=== PATIENT | female | born 1985 | race Caucasian/White ===

== ENCOUNTER → 2024-05-23 | Outpatient (CLI) | payer OTHER ==
--- NOTE | 2024-05-23 09:32 | US ---
EXAMINATION TYPE: US venous doppler duplex LE BI DATE OF EXAM: 05/23/2024 9:22 AM COMPARISON: NONE CLINICAL INDICATION: Female, 39 years old with history of M79.604 PAIN IN RIGHT LEG M79.605 PAIN IN L EFT LEG; BL LE pain and numbness, claudication, Pain TECHNIQUE: The lower extremity deep venous system is examined utilizing real time linear array sonog jassi with graded compression, color doppler sonography, and spectral doppler. SIDE PERFORMED: Bilateral FINDINGS: VESSELS IMAGED: Common Femoral Vein Deep Femoral Vein Greater Saphenous Vein * Femoral Vein Popliteal Vein Small Saphenous Vein * Proximal Calf Veins (* superficial vessels) Right Leg: Negative for DVT, Color Doppler imaging shows patency of the vessels. Spectral waveforms are within normal limits. Left Leg: Negative for DVT, Color Doppler imaging shows patency of the vessels. Spectral waveforms a re within normal limits. IMPRESSION: No ultrasound evidence for deep venous thrombosis. [facility], , 05/23/2024 9:30 AM
--- NOTE | 2024-05-23 09:34 | US ---
EXAMINATION TYPE: US arterial LE single level DATE OF EXAM: 05/23/2024 9:14 AM COMPARISONS: None. CLINICAL INDICATION: Female, 39 years old with history of M79.604 PAIN IN RIGHT LEG M79.605 PAIN IN L EFT LEG; BL LE Claudication, can only walk up to 10 steps before pain. BL Toes turning purple and num bness. TECHNIQUE: Systolic pressures were taken of the upper and lower extremity arteries with ankle-brachia l indices and toe brachial indices calculated bilaterally. History of: Smoker: Yes Hypertension: Yes Diabetic: No Hyperlipidemia: Yes TIA/CVA: Yes Previous Vascular Surgery: No CAD: No [place]: No Vascular Ulcers: No Claudication: Yes Gangrene: No FINDINGS: Doppler Waveforms: Right: Multiphasic at femoral and popliteal, monophasic at ankle and foot Left: Multiphasic Brachial Artery systolic pressure: Right: 128 Left: 130 Posterior Tibial artery systolic pressure: Right: 140 Left: 138 Dorsalis Pedis artery systolic pressure: Right: 107 Left: 127 Toe artery systolic pressure: Right: 56 Left: 132 Ankle-Brachial Indices: Right: 1.08 Left: 1.06 Toe Brachial Indices: Right: 0.43 Left: 1.02 (Normal > 0.6; Mild 0.35 - 0.59, Moderate 0.12 - 0.34, Severe <0.12) IMPRESSION: Normal ankle brachial indices bilaterally however there are monophasic waveforms involving the right dorsalis pedis artery. Toe brachial index on the right suggests mild distal peripheral arterial vascu lar disease. [facility], , 05/23/2024 9:31 AM
== END | disposition home or self-care (01) ==
LOC: RADUSWWP 08:31
PROVIDERS: ATTEND Family Medicine
DX: M79.604 Pain in right leg (principal); M79.605 Pain in left leg
CPT/HCPCS: 93922; 93970